=== PATIENT | male | born 1990 | race Asian ===

== ENCOUNTER 2019-03-04 00:42 | Emergency (ER) | payer OTHER ==
[2019-03-04 01:37] LABS: ABS Lymphocytes 1.1 10^3/ul (1.0-4.8); ABS Monocytes 0.5 10^3/ul (0-0.8); ABS Neutrophils 3.3 10^3/ul (1.5-7.7); Eosinophil % 0.5 %; Hematocrit 42 % (42-52); Hemoglobin 14.4 g/dL (14.0-18.0); Lymphocyte % 22.3 %; Mean Corpuscular HGB Conc 34 g/dL (31-36); Mean Corpuscular Hemoglobin 30 pg (27-31); Mean Corpuscular Volume 89 fL (80-94); Mean Platelet Volume 7.9 fL (7.4-10.4); Platelet Count 207 10^3/uL (150-450); Red Blood Count 4.72 10^6 /uL (4.18-5.48); Red Cell Distribution Width 13 % (10-15)
--- NOTE | 2019-03-04 01:41 | ED ---
Neurological HPI - HPI Summary HPI Summary: 29-year-old male presents tingling in his hands and feet for 2 days. He states it started in his hands and in the next day moved to his feet. It is symmetric. Does not travel up his arm. Also does not travel into his leg. No difficulty with walking. No loss of strength. Never had this before. No recent illness. No cough chest pain or shortness breath. Does admit to some back pain on the sides the back. No midline tenderness area and no loss by bladder. No saddle anesthesia. no urinary symptoms. Is not on any medication. Nothing makes it better or worse. has an appointment for a primary initial appointment in couple weeks. - History of Current Complaint Chief Complaint: EDGeneral Stated Complaint: TINGLING IN ARMS/FEET PER PT Time Seen by Provider: 03/04/19 01:01 Pain Intensity: 4 - Allergy/Home Medications Allergies/Adverse Reactions: Allergies Allergy/AdvReac Type Severity Reaction Status Date / Time erythromycin base Allergy Nausea And Verified 03/04/19 00:48 Vomiting Home Medications: Home Medications Ibuprofen TAB* [Advil TAB*] 400 mg PO Q6HR 03/04/19 [History Confirmed 03/04/19] PMH/Surg Hx/FS Hx/Imm Hx Endocrine/Hematology History: Denies: Hx Anticoagulant Therapy Cardiovascular History: Denies: Hx Hypertension - Immunization History Immunizations Up to Date: Yes Infectious Disease History: No Infectious Disease History: Denies: Traveled Outside the [place] in Last 30 Days - Family History Known Family History: Negative: Diabetes - Social History Alcohol Use: Rare Substance Use Type: Reports: None Smoking Status (MU): Never Smoked Tobacco Review of Systems Negative: Fever Negative: Chest Pain Negative: Shortness Of Breath Positive: Paresthesia All Other Systems Reviewed And Are Negative: Yes Physical Exam Triage Information Reviewed: Yes Vital Signs On Initial Exam: Initial Vitals Temp Pulse Resp BP Pulse Ox 99.3 F 70 18 136/85 99 03/04/19 00:44 03/04/19 00:44 03/04/19 00:44 03/04/19 00:44 03/04/19 00:44 Vital Signs Reviewed: Yes Appearance: Positive: Well-Appearing Skin: Positive: Warm, Dry Head/Face: Positive: Normal Head/Face Inspection Eyes: Positive: Normal, EOMI, MARYELLEN, Conjunctiva Clear ENT: Positive: Normal ENT inspection, Pharynx normal, TMs normal Neck: Positive: Other: - nontender neck, full ROM neck Respiratory/Lung Sounds: Positive: Clear to Auscultation, Breath Sounds Present Cardiovascular: Positive: Normal, RRR Abdomen Description: Positive: Nontender, Soft Bowel Sounds: Positive: Present Musculoskeletal: Positive: Strength/ROM Intact - upper and lower extremities, Other - sensation grossly intact Neurological: Positive: Sensory/Motor Intact, Reflexes Intact - patella, biceps , Normal Gait, Other - able to heal and toe walk Psychiatric: Positive: Normal Diagnostics - Vital Signs Vital Signs Temp Pulse Resp BP Pulse Ox 03/04/19 00:44 99.3 F 70 18 136/85 99 - Laboratory Result Diagrams: 03/04/19 01:28 03/04/19 01:28 Lab Statement: Any lab studies that have been ordered have been reviewed, and results considered in the medical decision making process. Course/Dx - Course Course Of Treatment: 29-year-old male presents tingling in his hands and feet for 2 days. He states it started in his hands and in the next day moved to his feet. It is symmetric. Does not travel up his arm. Also does not travel into his leg. No difficulty with walking. No loss of strength. Never had this before. No recent illness. No cough chest pain or shortness breath. Does admit to some back pain on the sides the back. No midline tenderness area and no loss by bladder. No saddle anesthesia. no urinary symptoms. Is not on any medication. Nothing makes it better or worse. On exam sensation grossly intact. Has good strength in upper and lower extremities. Reflexes are intact. He has normal gait. wbc normal. h/h normal. electrolytes normal. TSH low but free t4 normal. We'll have follow-up with neurology or [facility] if can not get into neurology. warned of signs to return such as inability to ambulate or increase weakness. Patient understands agrees with plan. - Differential Dx Differential Diagnoses Neuro: Positive: Hypoglycemia, Metabolic Abnormality, Other - neuropathy - Diagnoses Provider Diagnoses: Paresthesia Discharge - Sign-Out/Discharge Documenting (check all that apply): Patient Departure Patient Received Moderate/Deep Sedation with Procedure: No - Discharge Plan Condition: Good Disposition: HOME Patient Education Materials: Paresthesia (ED) Referrals: [facility] [Outside] Boone Montoya MD [Medical Doctor] - Additional Instructions: follow up with neurology Follow up with [facility] Return to ED if develop severe weakness, difficulty ambulating, or any new or worsening symptoms - Billing Disposition and Condition Condition: GOOD Disposition: Home
[2019-03-04 01:54] LABS: ALT 8 U/L (7-52); AST 13 U/L (13-39); Albumin 4.9 g/dL (3.2-5.2); Alkaline Phosphatase 53 U/L (34-104); Anion Gap 7 mmol/L (2-11); BUN/Creatinine Ratio 13.9 (8-20); Blood Urea Nitrogen 14 mg/dL (6-24); C Reactive Protein < 1.00 mg/L (<8.01); CO2 Carbon Dioxide 28 mmol/L (22-32); Calcium 9.9 mg/dL (8.6-10.3); Chloride 102 mmol/L (101-111); EGFR African American 104.9 (>60); EGFR Non-African American 86.7 (>60); Globulin 2.4 g/dL (2-4); Glucose 135 mg/dL (70-100); Magnesium 2.1 mg/dL (1.9-2.7); Potassium 3.9 mmol/L (3.5-5.0); Sodium 137 mmol/L (135-145); Total Protein 7.3 g/dL (6.4-8.9)
[2019-03-04 02:06] LABS: Urine Bacteria Absent (Absent); Urine Red Blood Cell Trace(0-2/hpf) (Absent); Urine White Blood Cell Trace(0-5/hpf) (Absent)
[2019-03-04 02:10] LABS: Urine Appearance Clear; Urine Bilirubin Negative (Negative); Urine Blood Negative (Negative); Urine Color Yellow; Urine Glucose Negative (Negative); Urine Ketones Negative (Negative); Urine Nitrite Negative (Negative); Urine Protein Negative (Negative); Urine Specific Gravity 1.009 (1.010-1.030); Urine Urobilinogen Negative (Negative)
[2019-03-04 02:17] LABS: TSH (Thyroid Stimulating Horm) 0.15 mcIU/mL (0.34-5.60)
[2019-03-04 03:16] LABS: Free T4 1.07 ng/dL (0.61-1.12)
== END 2019-03-04 03:12 | disposition home or self-care (01) ==
LOC: ED 00:42
DX: R20.2 Paresthesia of skin (principal); M54.9 Dorsalgia, unspecified; Z88.1 Allergy status to other antibiotic agents
CPT/HCPCS: 36415; 80053; 81003; 83735; 84439; 84443; 84479; 85025; 86140; 86618; 87086; 99283